=== PATIENT | male | born 1960 ===

== ENCOUNTER 2023-12-08 19:06 | Emergency (ER) | payer MEDICARE ==
[2023-12-08] MEDS ORDERED: Sodium Chloride 0.9% 10 ML Syringe FLUSH PRN (19:11)
[2023-12-08 19:21] LABS: BASOPHILS ABSOLUTE AUTO 0.02 K/uL (0.00-0.20); BASOPHILS PERCENT AUTO 0.3 % (0.0-2.0); EOSINOPHILS ABSOLUTE AUTO 0.04 K/uL (0.00-0.50); EOSINOPHILS PERCENT AUTO 0.7 % (0.0-5.0); HEMATOCRIT 45.9 % (39.0-49.0); HEMOGLOBIN 15.2 g/dL (13.1-16.8); LYMPHOCYTES ABSOLUTE AUTO 1.71 K/uL (0.50-3.50); LYMPHOCYTES PERCENT AUTO 28.6 % (10.0-50.0); MEAN CORPUSCULAR HEMOGLOBIN 29.6 pg (28.2-33.3); MEAN CORPUSCULAR HGB CONC 33.1 g/dL (31.7-36.0); MEAN CORPUSCULAR VOLUME 89.3 fL (84.0-98.0); MONOCYTES ABSOLUTE AUTO 0.59 K/uL (0.00-1.00); MONOCYTES PERCENT AUTO 9.9 % (2.0-14.0); NEUTROPHILS ABSOLUTE AUTO 3.62 K/uL (1.40-7.00); NEUTROPHILS PERCENT AUTO 60.5 % (45.0-80.0); PLATELET COUNT,PLT 194 K/uL (150-350); RED BLOOD CELL COUNT 5.14 M/uL (4.33-5.41); RED CELL DISTRIBUTION WIDTH 14.1 % (11.2-14.1)
[2023-12-08 19:48] LABS: PROTHROMBIN TIME 10.3 SEC (9.0-11.1)
[2023-12-08 19:52] LABS: ALANINE AMINOTRANSFERASE,ALT 24 U/L (12-78); ALBUMIN 3.9 g/dL (3.4-5.0); ALKALINE PHOSPHATASE 91 IU/L (46-116); ANION GAP 7.8 meq/L (7-15); ASPARTATE AMNIOTRANSFERASE,AST 23 U/L (15-37); BILIRUBIN TOTAL 0.5 mg/dL (0.2-1.0); BLOOD UREA NITROGEN,BUN 28 mg/dL (7-18); CALCIUM 9.2 mg/dL (8.5-10.1); CARBON DIOXIDE,CO2 27.2 mmol/L (21.0-32.0); CHLORIDE,CL 105 mmol/L (98-107); CREATININE 1.02 mg/dL (0.51-1.17); ESTIMATED GFR 82 mL/min (>=60); GLUCOSE RANDOM 87 mg/dL (70-99); MAGNESIUM 2.2 mg/dL (1.8-2.4); POTASSIUM,K 3.9 mmol/L (3.5-5.1); PROTEIN TOTAL,TP 7.9 g/dL (6.4-8.2); SODIUM,NA 140 mmol/L (136-145)
[2023-12-08 20:01] LABS: PTT,PARTIAL THROMBOPLSTIN TIME 29.9 SEC (23.6-29.8)
[2023-12-08] MEDS ORDERED: Iopamidol 755 Mg/ML 100 ML Bottle IVPUSH STA (20:19)
[2023-12-08] MEDS ORDERED: Iopamidol 755 Mg/ML 100 ML Bottle IVPUSH ONE (20:20)
[2023-12-08] MEDS: Sodium Chloride 0.9% 1,000 ML IV ONE (20:54)
[2023-12-08] MEDS: Apixaban 5 MG Tab PO ONE ×2 (22:16→22:17)
[2023-12-08] MEDS ORDERED: Apixaban 5 MG Tab ONE (22:16)
== END 2023-12-08 22:57 | disposition home or self-care (01) ==
LOC: LL.ED 19:06
DX: I26.94 Multiple subsegmental thrombotic pulmonary emboli without acute cor pulmonale (principal); I71.21 Aneurysm of the ascending aorta, without rupture; R29.818 Other symptoms and signs involving the nervous system; E03.9 Hypothyroidism, unspecified; Z79.899 Other long term (current) drug therapy; Z79.01 Long term (current) use of anticoagulants
CPT/HCPCS: 36415; 70450; 70496; 70498; 71275; 80053; 83605; 83735; 84443; 84484; 85025; 85379; 85610; 85730; 93005; 93010; 99284; 99285; A9270-GY; J7030